=== PATIENT | male | born 1990 | race Caucasian/White ===

== ENCOUNTER 2018-02-11 12:42 | Outpatient (CLI) | payer OTHER ==
[2018-02-11] MEDS ORDERED: ISOVUE-370 76%-LOCM 1 ML ONE (14:01)
--- NOTE | 2018-02-11 16:00 | CT ---
CTA NECK AND CHEST WITH CONTRAST: INDICATIONS: Brachial plexus disorder. Complaints of left arm, chest, and neck pain, worse when lifting arms abov e head. TECHNIQUE: Multiple axial tomograms obtained through the neck and chest with IV enhancement, following angio pro tocol, with multiplanar reconstruction and 3D post processing. FINDINGS: CT chest shows an unremarkable thoracic aorta. No aneurysm and no evidence of dissection. The pulmo nary arteries are well opacified and appear unremarkable. No evidence of pulmonary embolus. Evaluation of the aortic arch reveals an abnormal linear lucency in the arch just proximal to the wilberto gin of the innominate artery. This is seen in all three planes. It is favored to be artifactual; how ever, a focal dissection cannot be completely excluded. There is a common origin of the innominate and left common carotid. The origin of the left subclavian is normal. There is evidence of luminal narrowing of the left subclavian artery as it passes posterior to the sc nina muscle and anterior to the left first rib. This could be further assessed with catheter angiog mckay with and without arm extension, if indicated. The common carotid arteries and visualized internal carotid arteries are unremarkable. The vertebral arteries are unremarkable. No soft tissue abnormality identified. There is no evidence of mass along the brachial plexus. The lung ortega are clear. IMPRESSION: 1. Evidence of luminal narrowing of the left subclavian artery as it passes posterior to the scalene muscle and anterior to the left first rib, possibly indicating thoracic outlet syndrome. Confirmati on with catheter angiogram may be of benefit. 2. There is a linear lucency in the ascending aortic arch, which is favored to be artifact. This wa s reviewed by Drs. Zhao and Lexii. All are in agreement that this is probably motion artifact, al though a confined dissection cannot be completely excluded. Consider transesophageal echocardiogram, to further assess the ascending aorta. POS: [facility]
== END 2018-02-11 12:43 | disposition home or self-care (01) ==
LOC: BICCT 12:42
PROVIDERS: ATTEND Internal Medicine Cardiovascular Disease
DX: G54.0 Brachial plexus disorders (principal); I70.8 Atherosclerosis of other arteries
CPT/HCPCS: 70498; 71275